=== PATIENT | female | born 1945 | race Caucasian/White ===

== ENCOUNTER → 2016-06-27 | Outpatient (CLI) | payer OTHER ==
[~2016-06-27] MED LIST: ALEVE220 M1 PO; CEFDINIR300 MG PO; COUMADIN 5 MG TA5 M1; COZAAR 50 MG TA50 M1 PO; NORCO 10-325 T1 EACH; OMEPRAZOLE-BIC1 EAC1 PO; REMERON15 MG PO; TRAMADOL 50 MG50 MG PO
== END ==
LOC: CAT 13:44
DX: Z13.6 Encounter for screening for cardiovascular disorders (principal)

== ENCOUNTER → 2017-04-17 | Outpatient (CLI) | payer OTHER ==
[~2017-04-17] MED LIST changes: +ALEVE220 MG PO; +CO Q-10100 MG PO; +DEXILANT60 MG PO; +HAIR, SKIN & N1 EAC3 PO; +HYZAAR 100-251 EACH PO; +LIPITOR 20 MG T20 M1 PO
--- NOTE | ~2017-04-17 | S ---
[facility] [place] [address] SURGICAL PATH RPT PROCEDURE Name: MARK LOPEZ Room #: REG [facility]#: [id number] Admission: 04/17/17 Date of : 47 Discharge: Report #: [id number] Path Case #: [id number] PATHOLOGY REPORT COLLECTION DATE: 04/17/2017 RECEIVED DATE: 04/17/2017 SUBMITTING PHYS: Dr. Alex Manrique OTHER PHYS: Dr. Willi Posey SPECIMEN(S) RECEIVED: A.Lt breast biopsy, 100, 6cm * * * * * * * * * * * * FINAL DIAGNOSIS: "Left breast biopsy, 1:00, 6 cm," image-guided needle biopsy: - INVASIVE MAMMARY CARCINOMA WITH FOCAL LOBULAR FEATURES, LOW-GRADE, GRADE I, INVOLVING BOTH CORES, LONGEST CONTIGUOUS FOCUS MEASURING 1.0 CM ON THE SLIDE. (PLEASE SEE COMMENT) COMMENT: Specimen type: Image-guided needle biopsy Tumor site: Left breast, 1:00, 6 cm Tumor quantitation: Involving both cores, longest contiguous focus measuring 1.0 cm on the slide Histologic type: Invasive mammary carcinoma with focal lobular features Histologic grade: Grade I, low-grade Tubules, nuclei and mitoses: Tubule score-3, nuclei score-1, mitoses score-1 LVSI: Not identified Microcalcifications: Not identified Markers: ER, CT, Her-2/clint, Ki-67 Block: Pending on block A1 The case is co-reviewed with Dr. Maisha Yap. The case is discussed with Edouard in the [facility] on 04/18/17 at 3:15 PM. (CLW:mgr; 04/18/2017) PATHOLOGIST: Hilaria Lawrence M.D. REPORT ELECTRONICALLY SIGNED BY: Hilaria Lawrence M.D. DATE/TIME: 04/18/2017 15:30 * * * * * * * * * * * * GROSS PATHOLOGY: The specimen is received in formalin, labeled "Mark Lopez and [place] [facility] [place] [address] SURGICAL PATH RPT PROCEDURE Name: MARK LOPEZ Room #: REG [facility].#: [id number] Admission: 04/17/17 Date of : 47 Discharge: Report #: [id number] Path Case #: [id number] breast 1:00, 6 cm", are two fibrofatty needle cores 1.2 and 1.0 cm in length and up to 0.1 cm in the diameter, entirely submitted in A1. Time surgically removed: 1530 on 04/17/17, time placed in formalin: 1530 on 04/17/17, time of fixation: 8 hours and 30 minutes. (SWS; 04/17/2017) CLINICAL HISTORY: Left breast mass INITIAL CPT CODE(S): A; 26978, 67648(4) Professional services performed by [facility] at [facility] , [place] [address] Technical services performed by [facility] at [address] [place] [address], [address], [place] [address]. [facility] [address] [place] [address] PHONE: [phone] DIRECTOR: Catrachito Gaona M.D. * * * END OF REPORT * * *
== END | disposition home or self-care (01) ==
LOC: RAD 12:54 → ULTRA 12:54
DX: C50.912 Malignant neoplasm of unspecified site of left female breast (principal); Z88.6 Allergy status to analgesic agent; Z79.899 Other long term (current) drug therapy

== ENCOUNTER 2017-05-05 14:16 | Emergency (ER) | payer OTHER ==
[~2017-05-05] VITALS: Ht 170.2 cm; Wt 70.3 kg
[2017-05-05] MEDS ORDERED: BIOTIN10000 MC1 PO (15:11)
[2017-05-05] MEDS ORDERED: ZOFRAN ODT4 MG PO (16:55)
[2017-05-05] MEDS ORDERED: ULTRAM 50MG TAB50 MG PO (16:55)
[2017-05-05 17:30] VITALS: BP 134/70
== END 2017-05-05 17:42 | disposition home or self-care (01) ==
LOC: ER 14:16
DX: S52.122A Displaced fracture of head of left radius, initial encounter for closed fracture (principal); I10 Essential (primary) hypertension; E78.5 Hyperlipidemia, unspecified; K21.9 Gastro-esophageal reflux disease without esophagitis; G43.909 Migraine, unspecified, not intractable, without status migrainosus; Z90.710 Acquired absence of both cervix and uterus; Z90.49 Acquired absence of other specified parts of digestive tract; Z85.038 Personal history of other malignant neoplasm of large intestine; W01.0XXA Fall on same level from slipping, tripping and stumbling without subsequent striking against object, initial encounter; Y93.89 Activity, other specified; Y92.89 Other specified places as the place of occurrence of the external cause; Y99.8 Other external cause status

== ENCOUNTER 2017-05-15 05:15 | Day surgery (SDC) | payer OTHER ==
[~2017-05-15] VITALS: Ht 170.2 cm; Wt 70.3 kg
--- NOTE | ~2017-05-15 | O ---
[facility] [place] [address] OPERATIVE REPORT Name: MARK LOPEZ Room #: 411-P [facility]..#: [id number] Admission: 05/15/17 Attend Phys: Burton Mario MD Discharge: Date of : 47 Report #: [id number] THIS REPORT FOR: //name// CC: Burton Posey MD PREOPERATIVE DIAGNOSIS: Left breast cancer superior mid breast. POSTOPERATIVE DIAGNOSIS: Left breast cancer superior mid breast. PROCEDURES PERFORMED: 1. Left lumpectomy. 2. Left sentinel node biopsy. ANESTHESIA: General. SURGEON: Burton Mario MD COMPLICATIONS: None. ESTIMATED BLOOD LOSS: 10 mL. PROCEDURE NOTE: With the patient under general anesthesia, the breast and axilla was prepped and draped in sterile fashion. IV antibiotic was given. Timeout was performed. An ultrasound with sterile sleeve was used to identify the mass, which is pretty high up at the 1 o'clock position. This was marked with a marking pen. An ellipse was then drawn on the skin surrounding the side of the marking. An ellipse was excised and the skin was left on the tissue for orientation. After incising through skin and subcutaneous tissue, the superior skin flap was developed at the superficial fascia of the breast. This was also done inferiorly. This dissection superiorly was carried down to the chest wall and coming around laterally. Then, the medial part of the breast was dissected free. In the inferior aspect, the breast specimen showed thickened fibrous type breast tissue. Once the skin flap was created, I could feel the mass where it was before through the skin it was very hard to feel. The lumpectomy was completed. The posterior dissection was carried to the pectoralis fascia. About [address] around was removed around the tumor. The anterior and posterior margin where the closest, but there is no other tissue left superiorly or posteriorly. Anteriorly the skin posterior to the pectoralis fascia. The biopsy cavity with hemostasis was checked and obtained with cautery. Moist gauze was used to pack this. Towel was placed over this area. Using separate instruments, the sentinel node biopsy was performed. A 0.25% Marcaine was used to anesthetize the skin and subcutaneous tissue at the lumpectomy and also the axillary sentinel node biopsy site. A 2.5 cm incision was made. Incision was carried through the subcutaneous tissue through the [address] [address] OPERATIVE REPORT Name: MARK LOPEZ Room #: 411-P REG [facility]#: [id number] Admission: 05/15/17 Attend Phys: Burton Mario MD Discharge: Date of : 47 Report #: [id number] fascia of the breast and the axillary content was then identified. The Neoprobe guided to the lymph node. The node bearing area was then identified. Then, a pickup was used to pull this tissue more into the wound. This was dissected free without difficulty. A brownish lymph node was found. There are some lymph nodes surrounding this. These were removed. Clips were placed for hemostasis. The sentinel node afterwards removed. Activity was measured for a 10-second count it was 754, repeat count was 626. There is an adjacent lymph node that had a count of 124 for 10-second count. There is no bed activity detected. The patient sentinel node was analyzed, was picked out for the pathologist, analyzed and frozen section and it did not show any tumor. Lumpectomy was then completed. Hemostasis obtained in the subcutaneous tissue. The axillary envelope was closed with 4-0 PDS. Skin was closed with 5-0 PDS running fashion. The lumpectomy site was then closed. The subcutaneous tissue was reapproximated with 4-0 PDS. Skin was closed with 5-0 PDS running subcuticular fashion. Dermabond was applied. Fluffy dressing and bandages applied. The patient was awakened and taken to recovery room. The patient tolerated the procedure well. By: [id number] [id number] Burton Mario MD /nt
--- NOTE | ~2017-05-15 | H ---
[facility] [place] [address] HISTORY AND PHYSICAL Name: MARK LOPEZ Room #: 150-3 [facility]..#: [id number] Admission: 05/15/17 Attend Phys: Burton Mario MD Discharge: Date of : 47 Report #: [id number] THIS REPORT FOR: //name// CC: Burton Posey MD DATE OF SERVICE: 05/15/2017 HISTORY OF PRESENT ILLNESS: The patient is a 72-year-old who was recently diagnosed with left breast cancer. The patient was watching television and she noticed a lump in the upper part of her breast. Did not think that it was there before. She does do self exam. The patient has not had any mammogram for about 5 years. She was told that she had her hysterectomy and that she did not need to have mammograms anymore. No family history of breast cancer. No family history of ovarian cancer. The patient does have a personal history of colon cancer. Her hysterectomy turned out not to be cancerous. She has even had a mass in the area around her gallbladder and bile duct and she had surgery at and she said that it turned out not to be cancerous. The patient was seen by Dr. Posey. He ordered a mammogram and it showed a suspicious area in the left upper central breast. The patient had an ultrasound that showed a 1.3 cm mass. She underwent an ultrasound-guided needle biopsy. This showed invasive mammary carcinoma with focal lobular features, was low grade, grade 1. The patient's ER is high at 99.1%, PA was negative, HER2 was 1+, Ki-67 was 3.5%, which is favorable. The patient says the mass was not painful. She did have bruising after the biopsy, which was quite tender. Denied any skin changes or discharge. No nipple changes. The patient did not have any prior breast disease or biopsies. The patient did have an MRI, that area was visible on the MRI in the upper breast. There is a question of a small nodule that was 5-5.9 mm at 3 o'clock, left breast. This was a targeted ultrasound and further mammogram was performed on that and a sterotactic biopsy was performed that turned out to be benign. The patient thought to be a good candidate for a lumpectomy because the lump is so high up. Mastectomy would be difficult because the cancer is pretty high up in the breast. The patient is brought in for left lumpectomy, sentinel node biopsy. PAST MEDICAL HISTORY: She has a history of colon cancer. She has had surgery. The patient has reflux disorder, elevated blood pressure and cholesterol. No heart disease. ALLERGIES: Does not have any allergies. MEDICATIONS: Dexilant, losartan and cholesterol medication. FAMILY HISTORY: Colon cancer. Brother also had lung cancer. There is a lot of colon cancer in the family. No ovarian or breast cancer in the family. [facility] [address] [place] [address] HISTORY AND PHYSICAL Name: MARK LOPEZ Room #: 150-3 [facility] M.R.#: [id number] Admission: 05/15/17 Attend Phys: Burton Mario MD Discharge: Date of : 47 Report #: [id number] SOCIAL HISTORY: The patient does not smoke or drink. REVIEW OF SYSTEMS: No chest pain, shortness of breath or palpitation. The patient recently broke her arm. PHYSICAL EXAMINATION: GENERAL: The patient is an elderly female, in no acute distress. HEENT: Pupils react to light. Extraocular muscles are intact. NECK: Soft and supple, no masses, no JVD. LUNGS: Clear. HEART: Regular rate and rhythm. No murmur or gallop. ABDOMEN: Soft, nondistended, nontender. BREASTS: There is a mass in the breast located in the 12 o'clock high up C position. DIAGNOSTIC STUDY: Biopsy positive for invasive ductal carcinoma with focal lobular feature. MRI confirms this area. There was another area that showed up at 3 o'clock. Biopsy with sterotactic biopsy showed fibrocystic change. The MRI was reviewed with Dr. Sherman. He was not as suspicious about the MRI of the second area as Dr. Clemens was. He recommended followup in 4-6 months of that area. The patient understands this. She wants to proceed with left lumpectomy and sentinel node biopsy. The patient after procedure will be seen by Radiation Oncology and medical oncologist. By: [id number] [id number] Burton Mario MD /nt
--- NOTE | ~2017-05-15 | S ---
[facility] [place] [address] SURGICAL PATH RPT PROCEDURE Name: MARK LOPEZ Room #: DEP [facility]..#: [id number] Admission: 05/15/17 Date of : 47 Discharge: 05/16/17 Report #: [id number] Path Case #: [id number] PATHOLOGY REPORT COLLECTION DATE: 05/15/2017 RECEIVED DATE: 05/15/2017 SUBMITTING PHYS: Dr. Burton Mario OTHER PHYS: Dr. Willi Posey SPECIMEN(S) RECEIVED: A.Left breast lumpectomy, short stitch is superior, long stitch is lateral B.Left axillary sentinel lymph node 1 C.Left axillary node, adjacent to sentinel node * * * * * * * * * * * * FINAL DIAGNOSIS: A. Breast, left breast, lumpectomy: - INVASIVE DUCTAL CARCINOMA, DUSTIN GRADE 2 OF 3, MEASURING 0.9 CM IN GREATEST DIMENSION. - Margins of resection free of malignancy; closest posterior margin is 2 mm away. - Skin with reactive changes and negative for malignancy. B. Lymph node (one), left axillary sentinel lymph node # 1, biopsy: - Reactive lymph node negative for malignancy. - No isolated tumor cells or micrometastases present on AE1/AE3 immunohistochemical stain (0/1). C. Lymph nodes (four), left axillary node adjacent to sentinel node, biopsy: - ISOLATED TUMOR CELLS IN ONE LYMPH NODE (pN0i+). SYNOPTIC CANCER STAGING REPORT CLINICAL Radiologic Finding: Mass or architectural distortion SPECIMEN Procedure: Excision without image-guided localization Lymph Node Sampling: Seney lymph node(s) Specimen Laterality: Left TUMOR Primary Tumor Site: Invasive Carcinoma: Upper outer quadrant Specify Clock Position of Tumor Site: 1 o'clock Presence of Invasive Carcinoma: Histologic Type: Invasive mammary carcinoma, [facility] [address] [place] [address] SURGICAL PATH RPT PROCEDURE Name: MARK LOPEZ Cedric Room #: [facility]#: [id number] Admission: 05/15/17 Date of : 47 Discharge: 05/16/17 Report #: [id number] Path Case #: [id number] no special type, with lobular features Histologic Grade (Midwest Histologic Score): Glandular (Acinar) / Tubular Differentiation: Score 3 (< 10% of tumor area forming glandular / tubular structures) Nuclear Pleomorphism: Score 2 (Cells larger than normal with open vesicular nuclei, visible nucleoli, and moderate variability in both size and shape) Mitotic Rate: Score 1 (<=3 mitoses per mm2) Overall Grade: Grade 2 (scores of 6 or 7) Ductal Carcinoma In Situ (DCIS): DCIS is present Architectural Patterns: Cribriform Nuclear Grade (see Table 2 in CAP Protocol): Grade II (intermediate) Lobular Carcinoma In Situ (LCIS): Not identified Tumor Size: Size of Largest Invasive Carcinoma: Greatest dimension of largest focus of invasion > 1 mm Greatest Dimension (mm): 9 Additional Dimension (mm): 8 Additional Dimension (mm): 9 Accessory Tumor Findings Lymph-Vascular Invasion: Not identified Dermal Lymph-Vascular Invasion: Not identified Microcalcifications: Not identified Treatment Effect: Response to Presurgical (Neoadjuvant) Therapy: No known presurgical therapy MARGINS Invasive Carcinoma: Margins uninvolved by invasive carcinoma Distance from Closest Margin: Distance (specify in mm): 2 Closest Uninvolved Margin: Posterior Superior: 6 Ductal Carcinoma In Situ (DCIS): Margins uninvolved by DCIS (DCIS present in specimen) Distance of DCIS from Closest Margin (mm): Distance (specify in mm): 6 Closest Uninvolved Margin(s): Superior LYMPH NODES Regional Lymph Nodes: Seney lymph node biopsy performed Number of Seney Nodes Examined: Specify number: 1 Method of Evaluation of Seney Lymph Node(s): H-E, multiple levels Immunohistochemistry Number of Lymph Node(s) Examined (sentinel and nonsentinel): Specify number: 5 Lymph Node Involvement: Number of Lymph Nodes with Macrometastases (> 2 mm): [facility] [address] [place] [address] SURGICAL PATH RPT PROCEDURE Name: MARK LOPEZ Room #: [facility] M.R.#: [id number] Admission: 05/15/17 Date of : 47 Discharge: 05/16/17 Report #: [id number] Path Case #: [id number] Specify number: 0 Number of Lymph Nodes with Micrometastases (> 0.2 mm to 2 mm and / or > 200 cells): Specify number: 0 Number of Lymph Nodes with Isolated Tumor Cells (<= 0.2 mm and <= 200 cells): Specify number: 1 STAGE (PTNM) Primary Tumor (Invasive Carcinoma) (pT): pT1b: Tumor > 5 mm but <= 10 mm in greatest dimension Category (pN): pN0 (i+): Malignant cells in regional lymph node(s) no greater than 0.2 mm and no more than 200 cells (detected by H-E or IHC including ITC) COMMENT The breast prognostic markers were performed on [id number]. These are not repeated again. Please refer to a separate report. COMMENT: AE1/AE3 immunohistochemical stain performed on block B1 -no isolated tumor cells or micrometastases present AE1/AE3 immunohistochemical stain performed on block C1 -isolated tumor cells in one of the three lymph nodes. [facility] (Slide C1 with IHC only)- Dr. Qasim Weaver. Findings are discussed with Dr. Mario at 9:55 AM on 05/18/17. (IUV; 05/16/17) PATHOLOGIST: Maisha Yap M.D. REPORT ELECTRONICALLY SIGNED BY: Maisha Yap M.D. DATE/TIME: 05/18/2017 11:15 * * * * * * * * * * * * GROSS PATHOLOGY: A. Received fresh from the OR labeled with the patient's name, and "left breast lumpectomy, short stitch is superior, long stitch is lateral" consists of an oriented lumpectomy specimen 43.3 grans measuring 7 cm medial to lateral, 6 cm superior to inferior and 2 cm anterior to posterior. There is a thin strip of skin on the anterior surface of the specimen measuring 5 cm. The superior margin is inked blue, the medial margin is inked yellow, the lateral margin is inked green, the inferior margin is inked red and the deep margin is inked black. The specimen is serially sectioned and it shows a 0.9 x 0.8 x 0.9 cm irregular mass lesion with associated biopsy material. This lesion is 0.7 cm from the closest superior margin, 1.5 cm from the closest inferior margin, 0.6 cm from the deep margin, 1.5 cm from the lateral as well as the medial margins. The entire lesion is [facility] [address] [place] [address] SURGICAL PATH RPT PROCEDURE Name: MARK LOPEZ Room #: [facility]#: [id number] Admission: 05/15/17 Date of : 47 Discharge: 05/16/17 Report #: [id number] Path Case #: [id number] submitted in A1-A4. [employer] Yarn Examiner sections of the dense fibrous areas as well as the skin and the margins are submitted in A5-A8. B. Received fresh from the OR labeled with the patient's name, and "left axillary sentinel lymph node #1" consists of a fibrofatty fragment of tissue. The specimen is sectioned to show a 1.3 cm brown-montes tissue. Touch preparations are made to include the surrounding fatty tissue, labeled as TPB2. The entire lymph node is submitted for frozen section as FSB1, subsequently submitted for permanent sections as B1. C. Received in formalin labeled with the patient's name, "left axillary node adjacent to sentinel node" consists of three separate fragments of fatty tissue. The fatty fragments of tissue range from 2.0 x 1.0 x 1.0 cm to approximately 1.0 cm as well as 1.5 cm. The smaller lymph nodes are submitted as follows: C1 - one bisected lymph node, one lymph node inked black, and another lymph node inked blue. C2 - larger bisected lymph node in entirety (IUV:db; 05/15/2017) FROZEN SECTION DIAGNOSIS: (Maisha Yap M.D.): FSB1 and TPB1, Left axillary sentinel lymph node, biopsy: - No macrometastases on TPB1 or FSB1 slides. These findings are discussed with Dr. Burton Mario in OR1 and a written report is placed in the patient's chart. Testing performed by [facility] at [place] [address], [place] [address] INTRAOPERATIVE CONSULTATION (Maisha Yap M.D.): A. Breast, left breast, lumpectomy: - 0.9 cm mass lesion grossly free from the closest margin. Testing performed by [facility] at [place] [address], [place] [id number] CLINICAL HISTORY: History of invasive mammary carcinoma with lobular features, ER positive INITIAL CPT CODE(S): A; 64337 B; 84903, 02088, 17132 C; 18826, 08819 Professional services performed by [facility] at [place] [address] [place] [address] SURGICAL PATH RPT PROCEDURE Name: MARK LOPEZ Room #: [facility] Dylan#: [id number] Admission: 05/15/17 Date of : 47 Discharge: 05/16/17 Report #: [id number] Path Case #: [id number] [facility] [address] [place] [address] Technical services performed by [facility] at [address] [place] [address], [facility] [address] [address]. [facility] [address] [address] PHONE: [phone] DIRECTOR: Catrachito Gaona M.D. * * * END OF REPORT * * *
--- NOTE | ~2017-05-15 | EKG ---
[address] [employer] [address] ELECTROCARDIOGRAM REPORT Name: MARK LOPEZ Room #: 411-P [facility].#: [id number] Admission: 05/15/17 Attend Phys: Burton Mario MD Discharge: Date of : 47 Report #: [id number] THIS REPORT FOR: //name// [facility] Test Date: 2017-05-15 Test Time: 09:15:45 Pat Name: MARK LOPEZ Department: Room: 150 3 Gender: F [employer]ental [employer]: ADALID : [id number] Requested By: Burton Mario Order Number: [id number] MD: Jeremy Hernández Measurements Intervals Lyons Rate: 63 P: 35 TX: 147 QRS: -16 QRSD: 96 T: -5 QT: 431 QTc: 442 Interpretive Statements Sinus rhythm Low voltage, precordial leads Abnormal R-wave progression, early transition Left ventricular hypertrophy Borderline T abnormalities, inferior leads Baseline wander in lead(s) I,III,aVL Compared to ECG 07/15/2012 13:04:19 Low QRS voltage now present T-wave abnormality now present Electronically Signed On 05-15-2017 21:42:55 CONCRETE FLOATER by Jeremy Hernández [email or web address] <ELECTRONICALLY SIGNED> By: Jeremy Hernández MD 05/15/17 2142 4 4 Jeremy Hernández MD /EPI
[~2017-05-15 05:15] MED LIST changes: +BIOTIN10000 MC1 PO; +ULTRAM 50MG TAB50 MG PO; +VOLTAREN GEL 1100 G2 TOP; +ZOFRAN ODT4 MG PO
[2017-05-15 09:36] LABS: CALCIUM 9.7 mg/dL (8.5-10.1); CREATININE 0.8 mg/dL (0.6-1.0); POTASSIUM 3.9 mmol/L (3.5-5.1)
[2017-05-15 09:45] VITALS: BP 117/77
[2017-05-15 17:30] VITALS: BP 131/45
[2017-05-15 17:53] VITALS: BP 121/83
[2017-05-15 18:30] VITALS: BP 134/72
[2017-05-15 20:00] VITALS: BP 106/69
[2017-05-16 00:06] VITALS: BP 113/53
[2017-05-16 04:00] VITALS: BP 107/63
[2017-05-16 08:54] VITALS: BP 111/65
[2017-05-16] MEDS ORDERED: NAPROXEN250 MG PO (12:42)
[2017-05-16 12:48] VITALS: BP 111/65
== END 2017-05-16 13:27 | disposition home or self-care (01) ==
LOC: OR 05:15 → TBA 05:15 → OR 15:15 → 4N 17:04 → ENTRNSPT 05-16 13:16 → EDTRNSPTSTS 05-16 13:18 → OR 05-16 13:27
PROVIDERS: Surgery
DX: C50.912 Malignant neoplasm of unspecified site of left female breast (principal); I10 Essential (primary) hypertension; G43.909 Migraine, unspecified, not intractable, without status migrainosus; K21.9 Gastro-esophageal reflux disease without esophagitis; E78.00 Pure hypercholesterolemia, unspecified; Z79.899 Other long term (current) drug therapy; Z80.1 Family history of malignant neoplasm of trachea, bronchus and lung; Z80.0 Family history of malignant neoplasm of digestive organs; Z90.49 Acquired absence of other specified parts of digestive tract; Z90.710 Acquired absence of both cervix and uterus; Z96.652 Presence of left artificial knee joint

== ENCOUNTER → 2017-11-23 | Outpatient (CLI) | payer OTHER ==
[~2017-11-23] MED LIST changes: +NAPROXEN250 MG PO
== END ==
LOC: NUC 11-21 15:54
DX: Z13.820 Encounter for screening for osteoporosis (principal); M85.89 Other specified disorders of bone density and structure, multiple sites

== ENCOUNTER → 2018-04-25 | Outpatient (CLI) | payer OTHER | LOC: RAD 03:14 | DX: C50.912 Malignant neoplasm of unspecified site of left female breast (principal) ==

== ENCOUNTER → 2018-11-15 | Outpatient (CLI) | payer OTHER ==
[~2018-11-15] VITALS: Ht 167.6 cm; Wt 70.3 kg
[~2018-11-15] MED LIST changes: +APAP650 PO; +CRESTOR10 MG PO; +PROTONIX40 M1 PO
--- NOTE | 2018-11-16 11:42 | P ---
[facility] [place] [address] PROCEDURE REPORT Name: MARK LOPEZ Room #: REG [facility]#: [id number] Admission: 11/15/18 ������������������ Attend Phys: Jose Miguel Gomez MD Discharge: ������������������ Date of : 47 Report #: [id number] THIS REPORT FOR: //name// CC: Jose Miguel Posey MD BRIEF HISTORY: The patient is a 73-year-old woman with a previous history of a large proximal colon. Tubulovillous adenoma with high-grade dysplasia. She had a surgical resection. She also has a history of colon polyps. Her sister was diagnosed with colon cancer about age 60. PREOPERATIVE DIAGNOSIS: History of advanced adenoma and family history of colon cancer, high risk screening colonoscopy. POSTOPERATIVE DIAGNOSIS: Moderately severe sigmoid diverticulosis coli. MEDICATIONS: Propofol per Anesthesia. SPECIMEN: None. ESTIMATED BLOOD LOSS: None. PROCEDURE: Colonoscopy to cecum. FINDINGS: Prior to propofol sedation, procedure of colonoscopy was discussed with the patient as well as potential risks and its complications. She indicates she understands and desires to proceed. DESCRIPTION OF PROCEDURE: With the patient in left lateral decubitus position, digital examination was completed which revealed no abnormalities. Subsequently, an Olympus video colonoscope was introduced in the rectum and advanced under direct vision to the proximal colon anastomosis, done with minimal difficulty. The ileocolonic anastomosis was identified. It was noted to be unremarkable. The distal segment of terminal ileum was normal. At that point, scope was slowly withdrawn and careful circumferential views were obtained. Upon slow withdrawal of the scope, the prep was good. The mucosa was within normal limits, normal vascular pattern, normal light reflex. As we withdrew the scope, no abnormalities were noted until the sigmoid colon was reached. There was noted to be moderately severe diverticular disease without endoscopic evidence of diverticulitis. Scope was further withdrawn. No additional abnormalities were seen. Scope was withdrawn in the rectum. Upon retroflexion, no abnormalities were seen. The scope was withdrawn. The patient tolerated the procedure well. CONDITION OF THE PATIENT UPON DISCHARGE: Following procedure, the patient drowsy, aroused, conversant and will be discharged home when fully ambulatory. [address] [address] PROCEDURE REPORT Name: MARK LOPEZ Room #: REG [facility]#: [id number] Admission: 11/15/18 ������������������ Attend Phys: Jose Miguel Gomez MD Discharge: ������������������ Date of : 47 Report #: [id number] INSTRUCTIONS TO THE PATIENT AND FAMILY AT THE TIME OF DISCHARGE: No neoplastic lesions were seen today. She has a history of a highly neoplastic colon polyp with previous resection and family history of colon cancer. Suggest followup colonoscopy in 3 years. Last colonoscopy was not quite 5 years ago. Withdrawal time from the cecum was 12 minutes 29 seconds. ��������������������������������������������� <ELECTRONICALLY SIGNED> ���������������������������������������� By: Jose Miguel Gomez MD ��������������������������������������������� 11/16/18 1142 1211 2104 Jose Miguel Gomez MD /nydia
--- NOTE | 2018-11-16 11:42 | P ---
[facility] [place] [address] PROCEDURE REPORT Name: MARK LOPEZ Room #: REG [facility]#: [id number] Admission: 11/15/18 ������������������ Attend Phys: Jose Miguel Gomez MD Discharge: ������������������ Date of : 47 Report #: [id number] THIS REPORT FOR: //name// CC: Jose Miguel Posey MD BRIEF HISTORY: The patient is a 73-year-old woman with a history of reflux disease who had recent worsening of symptoms, on PPI therapy. PREOPERATIVE DIAGNOSIS: Reflux disease with worsening symptoms. POSTOPERATIVE DIAGNOSIS: Moderate gastritis. MEDICATIONS: Deep sedation with propofol per Anesthesia. SPECIMEN: Biopsies of gastritis. ESTIMATED BLOOD LOSS: 3 mL. PROCEDURE: EGD with biopsy. FINDINGS: Prior to propofol sedation, procedure of upper endoscopy discussed with the patient as well as potential risks and its complications. She indicates she understands and desires to proceed. DESCRIPTION OF PROCEDURE: With the patient in left lateral decubitus position, the Olympus video endoscope was inserted in the cervical esophagus under direct vision without difficulty. Examination of this organ through its entire length revealed normal esophageal mucosa down to the squamocolumnar junction. Squamocolumnar junction was inspected and noted to be unremarkable. No evidence of ulcers, erosions or Reeder's mucosa. A significant hiatus hernia was not seen. Scope was advanced into the stomach, was examined on end view as well as retroflexed views. There were a few scattered erosions in the antrum, but no ulcers were seen. Examination of the proximal stomach on end view as well as retroflexed views revealed nodular appearing mucosa. No polyps were seen. No mass lesions were seen. The mucosa was intact. The pylorus, duodenal bulb, postbulbar duodenal sweep were inspected down to the third portion and noted to be unremarkable. At that point, the scope was slowly withdrawn and careful circumferential views confirmed the above findings. Biopsies obtained of the gastritis. The patient tolerated the procedure well. DISPOSITION: The patient with a recent worsening of reflux. She is on pantoprazole and if needed, she can take it twice daily. If symptoms worsen over time and do not respond to PPI therapy, an antireflux procedure may be a [facility] [address] [place] [address] PROCEDURE REPORT Name: MARK LOPEZ Room #: REG [facility].#: [id number] Admission: 11/15/18 ������������������ Attend Phys: Jose Miguel Gomez MD Discharge: ������������������ Date of : 47 Report #: [id number] consideration. She is to return to see me in followup if symptoms do not improve. We will proceed with colonoscopy at this time. ��������������������������������������������� <ELECTRONICALLY SIGNED> ���������������������������������������� By: Jose Miguel Gomez MD ��������������������������������������������� 11/16/18 1142 1147 42 Jose Miguel Gomez MD /nt
--- NOTE | 2018-11-20 16:01 | PATH ---
[facility] [place] [address] PATHOLOGY RPT PROCEDURE Name: ANGELITA LOPEZ Cedric Room #: REG [facility].#: [id number] ������������������ Admission: 11/15/18 ������������������ Date of : 47 Discharge: Report #: [id number] Path Case #: [id number] [facility] Accession Number: [id number] . 01 Material submitted: . stomach - BX GASTRITIS R/O H-PYLORI . 01 Clinical history: . Pre-OP DX: HX colon cancer, polyps, GERD Post-OP DX: Gastritis, diverticulosis . 02 Diagnosis: Gastric biopsy "gastritis": - One fragment reveals a fundic gland polyp. - The other fragments reveal mild chronic reactive gastropathy. - There is no evidence of malignancy. - The immunoperoxidase stain for Helicobacter pylori is negative. (SHA:emmanuel 11/20/2018) QTP/11/20/2018 . 02 Electronically signed: . Fausto Ma MD, Pathologist NPI- [id number] . 01 Gross description: . Received in formalin labeled "Angelita Lopez, BX gastritis, rule out H. pylori," are 5 segments of montes soft tissue measuring 1.1 x 1.0 x 0.4 cm in aggregate dimensions and ranging from 0.1 to 0.6 cm in maximum dimension. The specimen is submitted entirely in cassette A1. (TSD; 11/15/2018) TOB/TOB . 02 Pathologist provided ICD-10: K31.7, K31.9 . 02 CPT . 630589, X86551 Specimen Comment: A courtesy copy of this report has been sent to Specimen Comment: [phone], . Specimen Comment: Report sent to DR VALERIO / DR REYES Performed at: [address] [id number] MD Jimmy Galvez MD Phone: [phone] Performed at: [address] [id number] [address] [address] PATHOLOGY RPT PROCEDURE Name: ANGELITA LOPEZ [facility] [id number] ������������������ Admission: 11/15/18 ������������������ Date of : 47 Discharge: Report #: [id number] Path Case #: [id number] MD Maisha Yap MD Phone: [phone]
== END | disposition home or self-care (01) ==
LOC: GI 08:45
DX: Z12.11 Encounter for screening for malignant neoplasm of colon (principal); Z86.010 Personal history of colon polyps; Z80.0 Family history of malignant neoplasm of digestive organs; K57.30 Diverticulosis of large intestine without perforation or abscess without bleeding; K31.7 Polyp of stomach and duodenum; K31.9 Disease of stomach and duodenum, unspecified; I10 Essential (primary) hypertension; K21.9 Gastro-esophageal reflux disease without esophagitis; G43.909 Migraine, unspecified, not intractable, without status migrainosus; E78.5 Hyperlipidemia, unspecified; Z85.3 Personal history of malignant neoplasm of breast; Z91.040 Latex allergy status; Z90.49 Acquired absence of other specified parts of digestive tract; Z90.710 Acquired absence of both cervix and uterus; Z96.652 Presence of left artificial knee joint; Z98.890 Other specified postprocedural states; Z87.19 Personal history of other diseases of the digestive system; Z98.0 Intestinal bypass and anastomosis status; Z96.622 Presence of left artificial elbow joint; Z79.899 Other long term (current) drug therapy
CPT/HCPCS: 62110; 62900

== ENCOUNTER → 2018-12-12 | Outpatient (CLI) | payer OTHER | LOC: RAD 01:13 → ULTRA 01:13 → RAD 10:00 | DX: N63.21 Unspecified lump in the left breast, upper outer quadrant (principal); Z85.3 Personal history of malignant neoplasm of breast ==

== ENCOUNTER → 2018-12-17 | Outpatient (CLI) | payer OTHER ==
--- NOTE | 2018-12-20 17:05 | PATH ---
[facility] [address] [place] [address] PATHOLOGY RPT PROCEDURE Name: MARK LOPEZ Room #: REG [facility] M..#: [id number] ������������������ Admission: 12/17/18 ������������������ Date of : 47 Discharge: Report #: [id number] Path Case #: [id number] [facility] Accession Number: [id number] . 01 Material submitted: . breast - LEFT BREAST MASS, 12:00. Modifiers: left, 12:00 . 01 Clinical history: . Lt breast mass . 02 Diagnosis: Breast, left breast mass, needle core biopsy: - Negative for malignancy. - Dense stromal fibrosis associated with macrophages, as well as foci of chronic inflammation, compatible with reactive reparative changes. . (IUV:adore; 12/20/2018) QMS/12/20/2018 . 02 Comment: Much of the biopsy tissue is comprised of fibrin and elements of peripheral blood. A single intact needle core biopsy is present for evaluation and shows scant number of cells present. Properly controlled immunohistochemical stains are performed on block A1 and included AE1/AE3 as well as CD68. The cells are reactive to CD68 consistent with macrophages. Weak nonspecific reactivity is noted on the AE1/AE3 immunohistochemical stain, however, there is no membranous reactivity present supporting lack of malignancy. . Dr. Alycia Asencio and Dr. Salud Stovall have seen this case and concur with the diagnosis rendered. (IUV:adore; 12/20/2018) . 02 Electronically signed: . Maisha Yap MD, Pathologist NPI- [id number] . 01 Gross description: . Received in formalin labeled "Mark Lopez, Lt breast 4 cm," is a single needle core of yellow-montes soft tissue measuring 0.7 cm in length by 0.1 cm in diameter admixed with montes-brown, friable material. The specimen is submitted entirely in cassette A1. The cold ischemic time is less than one minute. The total formalin fixation time is 29 hours and 35 minutes. (DAC; 12/17/2018) XDC/XDC . 02 Pathologist provided ICD-10: [address] [address] PATHOLOGY RPT PROCEDURE Name: MARK LOPEZ Room #: REG [facility]#: [id number] ������������������ Admission: 12/17/18 ������������������ Date of : 47 Discharge: Report #: [id number] Path Case #: [id number] N60.32, N61.0 . 02 CPT . 675635, [id number], P92019 Specimen Comment: A courtesy copy of this report has been sent to Specimen Comment: [phone], . Specimen Comment: Report sent to / DR TOLEDO Performed at: [address] [facility], [place] [id number] MD Jimmy Galvez MD Phone: [phone] Performed at: [address] [facility] [id number] MD Maisha Yap MD Phone: [phone]
== END | disposition home or self-care (01) ==
LOC: ULTRA 10:43
DX: N61.0 Mastitis without abscess (principal); N60.32 Fibrosclerosis of left breast; I10 Essential (primary) hypertension; E78.00 Pure hypercholesterolemia, unspecified; K21.9 Gastro-esophageal reflux disease without esophagitis; Z85.038 Personal history of other malignant neoplasm of large intestine; Z79.899 Other long term (current) drug therapy; Z80.0 Family history of malignant neoplasm of digestive organs; Z80.1 Family history of malignant neoplasm of trachea, bronchus and lung; Z98.890 Other specified postprocedural states

== ENCOUNTER → 2019-01-03 | Outpatient (CLI) | payer OTHER | LOC: ULTRA 08:43 | DX: K76.0 Fatty (change of) liver, not elsewhere classified (principal); R16.1 Splenomegaly, not elsewhere classified; Z90.49 Acquired absence of other specified parts of digestive tract ==

== ENCOUNTER → 2019-01-17 | Outpatient (CLI) | payer OTHER ==
[2019-01-17 08:00] LABS: CREATININE 0.9 mg/dL (0.6-1.0)
== END ==
LOC: CAT 07:26
PROVIDERS: Specialist
DX: K82.8 Other specified diseases of gallbladder (principal)

== ENCOUNTER → 2019-02-05 | Outpatient (CLI) | payer OTHER | LOC: MRI 12:45 | DX: K83.5 Biliary cyst (principal) ==

== ENCOUNTER → 2019-12-05 | Outpatient (CLI) | payer OTHER | LOC: BC 10:11 | PROVIDERS: ATTEND Registered Nurse | DX: C50.212 Malignant neoplasm of upper-inner quadrant of left female breast (principal); Z17.0 Estrogen receptor positive status [ER+] ==

== ENCOUNTER → 2020-02-13 | Outpatient (CLI) | payer OTHER | LOC: MRI 14:03 → LABMALL 14:03 → MRI 14:24 | PROVIDERS: ATTEND Psychiatry & Neurology Neurology | DX: R51 Headache (principal); G62.9 Polyneuropathy, unspecified ==

== ENCOUNTER 2020-10-13 19:58 | Emergency (ER) | payer OTHER ==
[~2020-10-13] VITALS: Ht 167.6 cm; Wt 71.2 kg
[2020-10-13 20:44] LABS: URINE BILIRUBIN NEGATIVE (Negative); URINE BLOOD NEGATIVE (Negative); URINE CLARITY CLEAR; URINE COLOR YELLOW; URINE GLUCOSE-RANDOM* NEGATIVE (Negative); URINE KETONES NEGATIVE (Negative); URINE NITRITE-REFLEX NEGATIVE (Negative); URINE PROTEIN (DIPSTICK) NEGATIVE (Negative); URINE SPECIFIC GRAVITY 1.015 (1.005-1.035)
[2020-10-13 20:45] LABS: URINE LEUKOCYTES-REFLEX 1+ (Negative)
[2020-10-13 20:54] LABS: BASOPHILS 0.8 % (0.0-2.0); HEMATOCRIT 43.3 % (37.0-47.0); HEMOGLOBIN 14.7 gm/dL (12.0-15.0); LYMPHOCYTES 18.9 % (24.0-44.0); MCH 31.4 pg (26.0-34.0); MCV 92.5 fL (80.0-100.0); MONOCYTES 6.8 % (1.0-8.0); PLATELET COUNT 231 thou/uL (150-400); POLYS 71.5 % (36.0-66.0); RBC 4.69 mil/uL (4.20-5.00); RDW 13.2 % (10.5-14.5); WBC 9.8 thou/uL (4.0-11.0)
[2020-10-13 21:06] LABS: CALCIUM 9.7 mg/dL (8.5-10.1); CREATININE 0.8 mg/dL (0.6-1.0); POTASSIUM 3.5 mmol/L (3.5-5.1)
[2020-10-13 21:06] LABS: SQUAMOUS 0-3 Few /LPF (0-3)
[2020-10-13 21:07] LABS: BACTERIA-REFLEX 1-9 Few /HPF (None Seen); CASTS None Seen /LPF (None Seen); CRYSTALS None Seen /LPF (None Seen); URINE RBC 0-2 Rare /HPF (0-2); URINE WBC-REFLEX 0-5 Rare /HPF (0-5)
[2020-10-13 21:12] LABS: ALBUMIN 4.4 g/dL (3.4-5.0); TOTAL BILIRUBIN 0.7 mg/dL (0.2-1.0); TOTAL PROTEIN 7.8 g/dL (6.4-8.2)
[2020-10-13] MEDS ORDERED: OMEPRAZOLE40 MG PO (22:30)
[2020-10-13] MEDS ORDERED: ONDANSETRON HCL4 M2 PO (22:30)
[2020-10-13] MEDS ORDERED: CARAFATE 1 GM TA1 G1 PO (22:30)
[2020-10-13 22:36] VITALS: BP 141/74
--- NOTE | 2020-10-14 07:10 | EKG ---
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 : 1945 Requested By: Yuval Zuniga Order Number: [id number] MD: Tanner Reinoso Measurements Intervals [place] Rate: 77 P: 12 CA: 152 QRS: -27 QRSD: 90 T: 3 QT: 408 QTc: 462 Interpretive Statements Sinus rhythm Left ventricular hypertrophy Baseline wander in lead(s) V3 Compared to ECG 05/15/2017 09:15:45 T-wave abnormality no longer present Electronically Signed On 10-14-2020 7:10:17 CDT by Tanner Reinoso [email or web address] <ELECTRONICALLY SIGNED> By: Tanner Reinoso MD, [facility] 10/14/20 0710 53 53 Tanner Reinoso MD, FAC /EPI
== END 2020-10-13 22:40 | disposition home or self-care (01) ==
LOC: ER 19:58
PROVIDERS: Physician Assistant
DX: K29.70 Gastritis, unspecified, without bleeding (principal); R11.2 Nausea with vomiting, unspecified; R10.13 Epigastric pain; I10 Essential (primary) hypertension; E78.5 Hyperlipidemia, unspecified; G43.909 Migraine, unspecified, not intractable, without status migrainosus; Z91.040 Latex allergy status; Z79.899 Other long term (current) drug therapy; Z90.49 Acquired absence of other specified parts of digestive tract

== ENCOUNTER → 2020-10-21 | Outpatient (CLI) | payer OTHER ==
[~2020-10-21] MED LIST changes: +CARAFATE 1 GM TA1 G1 PO; +CARAFATE 1 GM TA1 GM PO; +CO Q-10 100 MG1 EACH PO; -CO Q-10100 MG PO; +HYDROCHLOROTHIA25 M1 PO; +NEURONTIN100 MG PO; +NORTRIPTYLINE H10 M2 PO; +NORVASC5 MG PO; +OMEPRAZOLE40 MG PO; +ONDANSETRON HCL4 M2 PO; +PROTONIX40 M2 PO; +ROPINIROLE HCL0.5 MG PO; +ROSUVASTATIN CA10 MG PO
== END ==
LOC: LAB 09:08
PROVIDERS: ATTEND Internal Medicine Gastroenterology
DX: Z01.812 Encounter for preprocedural laboratory examination (principal); Z20.822 Contact with and (suspected) exposure to COVID-19

== ENCOUNTER 2020-10-22 14:19 | Emergency (ER) | payer OTHER ==
[~2020-10-22] VITALS: Ht 167.6 cm; Wt 71.2 kg
[2020-10-22 15:36] LABS: ABSOLUTE NEUTROPHILS 5.9 thou/uL (1.4-8.2); BASOPHILS 0.5 % (0.0-2.0); EOSINOPHILS 2.5 % (0.0-3.0); HEMATOCRIT 42.4 % (37.0-47.0); HEMOGLOBIN 14.5 gm/dL (12.0-15.0); LYMPHOCYTES 17.8 % (24.0-44.0); MCH 31.7 pg (26.0-34.0); MCHC 34.3 g/dL (28.0-37.0); MCV 92.5 fL (80.0-100.0); MONOCYTES 5.9 % (1.0-8.0); PLATELET COUNT 226 thou/uL (150-400); POLYS 73.3 % (36.0-66.0); RBC 4.58 mil/uL (4.20-5.00); RDW 13.5 % (10.5-14.5); WBC 8.1 thou/uL (4.0-11.0)
[2020-10-22 15:44] LABS: ANION GAP 8 mmol/L (7-16); BUN 18 mg/dL (7-18); CALCIUM 9.6 mg/dL (8.5-10.1); CHLORIDE 103 mmol/L (98-107); CO2 30 mmol/L (21-32); GLUCOSE 102 mg/dL (74-106); POTASSIUM 3.6 mmol/L (3.5-5.1); SODIUM 141 mmol/L (136-145)
[2020-10-22 15:54] LABS: ALBUMIN 4.2 g/dL (3.4-5.0); DIRECT BILIRUBIN 0.1 mg/dL (<0.1-0.2); LIPASE 213 U/L (73-393); SGOT 43 U/L (15-37); SGPT 46 U/L (14-59); TOTAL BILIRUBIN 0.5 mg/dL (0.2-1.0); TOTAL PROTEIN 7.9 g/dL (6.4-8.2); TROPONIN-I <0.06 ng/mL (<0.06)
[2020-10-22] MEDS ORDERED: CARAFATE 1 GM TA1 G1 PO (16:55)
[2020-10-22 17:16] VITALS: BP 164/80
--- NOTE | 2020-10-25 07:02 | EKG ---
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: : 1945 Requested By: Roger Bal Order Number: [id number] MD: Tanner Reinoso Measurements Intervals [place] Rate: 72 P: 16 IN: 155 QRS: -27 QRSD: 101 T: -7 QT: 440 QTc: 482 Interpretive Statements Sinus rhythm Consider left atrial enlargement Low voltage, precordial leads Abnormal R-wave progression, early transition Left ventricular hypertrophy Borderline T abnormalities, inferior leads Compared to ECG 10/13/2020 20:54:31 Low QRS voltage now present T-wave abnormality now present Electronically Signed On 10-25-2020 7:02:17 CDT by Tanner Reinoso [email or web address] <ELECTRONICALLY SIGNED> By: Tanner Reinoso MD, FAC 10/25/20 0702 1533 1533 Tanner Reinoso MD, [facility] /EPI
== END 2020-10-22 17:17 | disposition home or self-care (01) ==
LOC: ER 14:19
PROVIDERS: Nurse Practitioner
DX: K29.70 Gastritis, unspecified, without bleeding (principal); I10 Essential (primary) hypertension; G43.909 Migraine, unspecified, not intractable, without status migrainosus; E78.5 Hyperlipidemia, unspecified; Z90.710 Acquired absence of both cervix and uterus; Z96.652 Presence of left artificial knee joint; Z90.89 Acquired absence of other organs; Z79.899 Other long term (current) drug therapy; Z91.040 Latex allergy status

== ENCOUNTER → 2020-10-25 | Outpatient (CLI) | payer OTHER ==
[~2020-10-25] VITALS: Ht 167.6 cm; Wt 71.2 kg
== END | disposition home or self-care (01) ==
LOC: GI 08:54
PROVIDERS: ATTEND Internal Medicine Gastroenterology
DX: R10.13 Epigastric pain (principal); R11.0 Nausea; K31.7 Polyp of stomach and duodenum; I10 Essential (primary) hypertension; E78.5 Hyperlipidemia, unspecified; G43.909 Migraine, unspecified, not intractable, without status migrainosus; M10.9 Gout, unspecified; M19.90 Unspecified osteoarthritis, unspecified site; Z85.038 Personal history of other malignant neoplasm of large intestine; K21.9 Gastro-esophageal reflux disease without esophagitis; Z98.890 Other specified postprocedural states; Z79.899 Other long term (current) drug therapy; Z90.710 Acquired absence of both cervix and uterus; Z96.652 Presence of left artificial knee joint; Z91.040 Latex allergy status; Z90.49 Acquired absence of other specified parts of digestive tract; Z87.19 Personal history of other diseases of the digestive system
CPT/HCPCS: 62110; 62900

== ENCOUNTER → 2021-04-21 | Outpatient (CLI) | payer OTHER ==
[2021-04-21 11:26] LABS: CREATININE 1.9 mg/dL (0.6-1.0)
== END ==
LOC: LAB 10:27 → CAT 10:27
PROVIDERS: ATTEND Nurse Practitioner
DX: N13.30 Unspecified hydronephrosis (principal); N21.0 Calculus in bladder; K57.30 Diverticulosis of large intestine without perforation or abscess without bleeding; R10.11 Right upper quadrant pain

== ENCOUNTER → 2021-05-06 | Outpatient (CLI) | payer OTHER | LOC: RAD 08:31 | PROVIDERS: ATTEND Otolaryngology Plastic Surgery within the Head & Neck | DX: K21.9 Gastro-esophageal reflux disease without esophagitis (principal); R49.0 Dysphonia ==